=== PATIENT | male | born 1960 | race African-American/Black ===

== ENCOUNTER 2016-08-05 10:47 | Observation (INO) | payer MEDICAID, OTHER ==
--- NOTE | 2016-08-05 11:16 | ER Document Report ---
ED Medical Screen (RME) - General Stated Complaint: RIGHT SIDE GROIN PAIN Time seen by provider: 11:14 Mode of Arrival: Ambulatory Information source: Patient Notes: 56-year-old male sent by Dr. Niño for possible incarcerated right inguinal hernia. Started having burning right groin pain on Friday with small bowel movements. No history of hernia repair I have greeted and performed a rapid initial assessment of this patient. A comprehensive ED assessment, evaluation of the patient, analysis of test results , and completion of the medical decision making process will be conducted by additional ED providers. TRAVEL OUTSIDE OF THE [place] IN LAST 30 DAYS: No - Related Data Allergies/Adverse Reactions: No Known Allergies Allergy (Verified 10/26/13 08:19) Past Medical History - Past Medical History Cardiac Medical History: Reports: Hx Congestive Heart Failure, Hx Coronary Artery Disease, Hx Heart Attack, Hx Hypercholesterolemia, Hx Hypertension Pulmonary Medical History: Reports: Hx COPD, Hx Sleep Apnea Endocrine Medical History: Reports: Hx Diabetes Mellitus Type 2 Renal/ Medical History: Reports: Hx Benign Prostatic Hyperplasia Musculoskeltal Medical History: Reports Hx Arthritis Traumatic Medical History: Reports: Hx Fractures - L ankle Past Surgical History: Reports: Hx Cardiac Surgery - CABGx3 03/2014, Hx Coronary Artery Bypass Graft - Immunizations Hx Diphtheria, Pertussis, Tetanus Vaccination: Yes Physical Exam - Vital signs Vitals: Temp Pulse Resp BP Pulse Ox 98.1 F 89 20 138/88 H 96 08/05/16 10:57 08/05/16 10:57 08/05/16 10:57 08/05/16 10:57 08/05/16 10:57 Course - Vital Signs Vital signs: Temp Pulse Resp BP Pulse Ox 98.1 F 89 20 138/88 H 96 08/05/16 10:57 08/05/16 10:57 08/05/16 10:57 08/05/16 10:57 08/05/16 10:57
[2016-08-05 11:36] LABS: ABSOLUTE BASOPHILS # (AUTO) 0.1 10^3/uL (0.0-0.2); ABSOLUTE EOSINOPHILS # (AUTO) 0.3 10^3/uL (0.0-0.6); ABSOLUTE LYMPHOCYTES (AUTO) 2.3 10^3/uL (0.5-4.7); ABSOLUTE MONOCYTES (AUTO) 0.7 10^3/uL (0.1-1.4); ABSOLUTE NEUT (AUTO) 4.6 10^3/uL (1.7-8.2); BASOPHILS % (AUTO) 1.4 % (0-2); EOSINOPHILS % (AUTO) 3.5 % (0-6); HEMATOCRIT 39.6 % (37.9-51.0); HEMOGLOBIN 13.1 g/dL (13.5-17.0); HGB HCT DIFFERENCE -0.3; LYMPHOCYTES % (AUTO) 28.6 % (13-45); MEAN CORPUSCULAR HEMOGLOBIN 26.7 pg (27.0-33.4); MEAN CORPUSCULAR VOLUME 81 fl (80-97); MONOCYTES % (AUTO) 9.1 % (3-13); RED BLOOD COUNT 4.89 10^6/uL (4.35-5.55); SEGMENTED NEUTROPHILS % (AUTO) 57.4 % (42-78); WHITE BLOOD COUNT 7.9 10^3/uL (4.0-10.5)
[2016-08-05 11:45] LABS: APPEARANCE,URINE CLEAR; BILIRUBIN,URINE NEGATIVE (NEGATIVE); GLUCOSE, URINE NEGATIVE (NEGATIVE); KETONES,URINE NEGATIVE (NEGATIVE); LEUKOCYTE ESTERASE,URINE NEGATIVE (NEGATIVE); NITRITE,URINE NEGATIVE (NEGATIVE); PROTEIN,URINE NEGATIVE (NEGATIVE); URINE SPECIFIC GRAVITY 1.016; UROBILINOGEN,URINE NEGATIVE mg/dL (<2.0)
[2016-08-05 11:53] LABS: ALANINE AMINOTRANSFERASE 30 U/L (21-72); ALBUMIN 4.6 g/dL (3.5-5.0); ALKALINE PHOSPHATASE 71 U/L (38-126); ANION GAP 13 (5-19); ASPARTATE AMINO TRANSFERASE 19 U/L (17-59); BILIRUBIN,TOTAL 0.8 mg/dL (0.2-1.3); BLOOD UREA NITROGEN 24 mg/dL (7-20); CALCIUM 10.1 mg/dL (8.4-10.2); CARBON DIOXIDE 27 mmol/L (22-30); CHLORIDE 104 mmol/L (98-107); CREATININE RESULT 1.43 mg/dL (0.52-1.25); GLUCOSE 255 mg/dL (75-110); POTASSIUM 4.9 mmol/L (3.6-5.0); SODIUM 144.2 mmol/L (137-145)
--- NOTE | 2016-08-05 15:32 | ER Document Report ---
ED GI/ - General Chief Complaint: Groin Pain Stated Complaint: RIGHT SIDE GROIN PAIN Mode of Arrival: Ambulatory Information source: Patient Notes: 56-year-old male who states around 2 days ago he developed some right groin pain and swelling to his right scrotum. He denies any dysuria, nausea, vomiting , fevers, history of abdominal surgeries,. Patient went to see his primary care physician who sent the patient here for evaluation of "possible hernia". Patient states the pain is "painful", constant, without radiation. No real aggravating relieving factors. TRAVEL OUTSIDE OF THE [place] IN LAST 30 DAYS: No - HPI Patient complains to provider of: Groin pain Onset: Other - See above Timing/Duration: Gradual Quality of pain: Other - See above Severity at maximum: Moderate Severity in ED: Moderate Pain Level: 2 Location: Other - See above Sexual history: Active Associated symptoms: Other - See above Exacerbated by: Denies Relieved by: Denies Similar symptoms previously: No Recently seen / treated by doctor: Yes - Related Data Allergies/Adverse Reactions: No Known Allergies Allergy (Verified 10/26/13 08:19) Past Medical History - General Information source: Patient - Social History Smoking Status: Never Smoker Chew tobacco use (# tins/day): No Frequency of alcohol use: Occasional Drug Abuse: None Family History: CAD, CVA, Hypertension Patient has suicidal ideation: No Patient has homicidal ideation: No - Past Medical History Cardiac Medical History: Reports: Hx Congestive Heart Failure, Hx Coronary Artery Disease, Hx Heart Attack, Hx Hypercholesterolemia, Hx Hypertension Pulmonary Medical History: Reports: Hx COPD, Hx Sleep Apnea Endocrine Medical History: Reports: Hx Diabetes Mellitus Type 2 Renal/ Medical History: Reports: Hx Benign Prostatic Hyperplasia. Denies: Hx Peritoneal Dialysis Musculoskeltal Medical History: Reports Hx Arthritis Traumatic Medical History: Reports: Hx Fractures - L ankle Past Surgical History: Reports: Hx Cardiac Surgery - CABGx3 03/2014, Hx Coronary Artery Bypass Graft - Immunizations Hx Diphtheria, Pertussis, Tetanus Vaccination: Yes Review of Systems - Review of Systems Constitutional: denies: Fever Cardiovascular: denies: Chest pain Respiratory: denies: Short of breath Gastrointestinal: denies: Vomiting Genitourinary: denies: Dysuria, Frequency, Flank pain, Hematuria, Urgency, Retention Musculoskeletal: denies: Leg swelling Skin: Other - no hives. denies: Rash Neurological/Psychological: Other - no slurred speech -: Yes All other systems reviewed and negative Physical Exam - Vital signs Vitals: Temp Pulse Resp BP Pulse Ox 98.1 F 89 20 138/88 H 96 08/05/16 10:57 08/05/16 10:57 08/05/16 10:57 08/05/16 10:57 08/05/16 10:57 Notes: Reviewed vital signs and nursing note as charted by RN. CONSTITUTIONAL: Alert and oriented and responds appropriately to questions. Well -appearing; well-nourished HEAD: Normocephalic; atraumatic CARD: Regular rate and rhythm; no murmurs, no clicks, no rubs, no gallops; symmetric distal pulses RESP: Normal chest excursion without splinting or tachypnea; breath sounds clear and equal bilaterally; no wheezes, no rhonchi, no rales ABD/GI: Normal bowel sounds; elevated BMI; no lower abdominal swelling or induration. GI/: Patient has some swelling and fullness to the right testicular/scrotal region. No erythema noted. No perineal lesions, erythema, or induration. No penile lesions present. BACK: The back appears normal and is non-tender to palpation, there is no CVA tenderness EXT: Normal ROM in all joints; non-tender to palpation; no cyanosis, no effusions, no edema SKIN: Normal color for age and race; warm; dry; good turgor; capillary refill < 2 seconds; no acute lesions noted NEURO: Moves all extremities equally; Motor and sensory function intact PSYCH: The patient's mood and manner are appropriate. Grooming and personal hygiene are appropriate. Course - Re-evaluation Re-evalutation: 08/05/16 15:32 Given the history and physical examination we will order an ultrasound of the scrotum. Basic labs have been ordered for possible preop. 08/05/16 17:01 I have called ultrasound as the patient has yet to go to ultrasound after over 2 hours of the order being placed. She states that she has called for the patient but has yet to be transported down to the ultrasound suite. 08/05/16 19:00 Surgery has seen and evaluated the patient regarding the ultrasound result. No change in exam. White count is recorded. The surgeon would like to hold the patient overnight with nothing by mouth at midnight, holding the Plavix, admit the patient to the primary care physician for possible surgery tomorrow. - Vital Signs Vital signs: Temp Pulse Resp BP Pulse Ox 98.1 F 89 20 138/88 H 96 08/05/16 10:57 08/05/16 10:57 08/05/16 10:57 08/05/16 10:57 08/05/16 10:57 - Laboratory Result Diagrams: 08/05/16 11:20 08/05/16 11:20 Laboratory results interpreted by me: 08/05/16 08/05/16 11:20 11:20 Hgb 13.1 L MCH 26.7 L BUN 24 H Creatinine 1.43 H Est GFR (Non-Af Amer) 51 L Glucose 255 H Discharge - Discharge Clinical Impression: Inguinal hernia of right side with obstruction and without gangrene Condition: Fair Disposition: ADMITTED INPATIENT Admitting Provider: [facility] Unit Admitted: Medical Floor
[2016-08-05] MEDS ORDERED: MORPHINE SULFATE 10 MG/ML INJ IV ONE (17:00)
[2016-08-05] MEDS ORDERED: OXYCODONE-ACETAMINOPHEN 5-325 MG TABLET ONE (18:12)
[2016-08-05] MEDS ORDERED: OXYCODONE-ACETAMINOPHEN 5-325 MG TABLET PO ONE (18:45)
--- NOTE | 2016-08-05 20:09 | PDOC CONSULTATION ---
History of Present Illness Admission Date/PCP: 08/05/16 19:18 ERICA ULRICH MD History of Present Illness: DIRK NUNES JR is a 56 year old male is referred to the emergency department by Dr. Bobo this afternoon after being seen in his office for 2-1/2 day history of right testicular swelling. Recent symptoms started insidiously to about days ago. He denies history of trauma, no hernia, constipation or any other precipitating factors. Pain was worse last night. He denies nausea or vomiting or any other constitutional symptoms. In the emergency department he had a ultrasound of his scrotum which showed incarcerated omentum on the right side. Testicles were deemed viable. The patient is being admitted the hospital for observation, with holding of Plavix, and interval surgery. Past Medical History Cardiac Medical History: Reports: Congestive Heart Failure, Coronary Artery Disease, Myocardial Infarction, Hyperlipidema, Hypertension Pulmonary Medical History: Reports: Chronic Obstructive Pulmonary Disease (COPD) , Sleep Apnea Endocrine Medical History: Reports: Diabetes Mellitus Type 2 Musculoskeltal Medical History: Reports: Arthritis Past Surgical History Past Surgical History: Reports: Coronary Artery Bypass Graft, Other - Removal of blister left foot, likely diabetic in nature Social History Smoking Status: Never Smoker Frequency of Alcohol Use: None Hx Recreational Drug Use: No Hx Prescription Drug Abuse: No Family History Family History: CAD, CVA, Hypertension Parental Family History Reviewed: Yes Children Family History Reviewed: Yes Sibling(s) Family History Reviewed.: Yes Medication/Allergy Home Medications: Simvastatin [Zocor 80 mg Tablet] 40 mg PO QHS 10/26/13 Aspirin [Ecotrin 325 mg EC Tablet] 325 mg PO DAILY #0 tabec 10/28/13 Nitroglycerin [Nitrostat 0.4 mg (1/150 Gr) Tabs 25/Bottle] 1 tab SL Q5MP PRN #1 bottle 10/28/13 Clopidogrel Bisulfate [Plavix 75 mg Tablet] 75 mg PO DAILY 09/28/14 Docusate Sodium [Colace 100 mg Capsule] 100 mg PO BID 09/28/14 Famotidine [Pepcid 20 mg Tablet] 20 mg PO BID 09/28/14 Furosemide [Lasix 20 mg Tablet] 20 mg PO QAM 09/28/14 Insulin Glargine,Hum.rec.anlog [Lantus Insulin 100 Unit/1 ml 10 ml] 70 unit SUBCUT QHS 09/28/14 Lisinopril [Prinivil 10 mg Tablet] 10 mg PO DAILY 09/28/14 Tamsulosin HCl [Flomax] 0.4 mg PO DAILY 09/28/14 Allergies/Adverse Reactions: No Known Allergies Allergy (Verified 10/26/13 08:19) Review of Systems Constitutional: PRESENT: as per HPI Eyes: PRESENT: as per HPI Ears: PRESENT: as per HPI Nose, Mouth, and Throat: PRESENT: as per HPI Breasts: PRESENT: as per HPI Cardiovascular: PRESENT: as per HPI Respiratory: PRESENT: as per HPI Gastrointestinal: PRESENT: as per HPI Genitourinary: PRESENT: as per HPI Musculoskeletal: PRESENT: back pain Physical Exam Vital Signs: Temp Pulse Resp BP Pulse Ox 98.1 F 89 20 138/88 H 96 08/05/16 10:57 08/05/16 10:57 08/05/16 10:57 08/05/16 10:57 08/05/16 10:57 General appearance: PRESENT: no acute distress Head exam: PRESENT: normocephalic, other - Wears glasses Eye exam: PRESENT: EOMI Ear exam: PRESENT: normal external ear exam Neck exam: PRESENT: full ROM Respiratory exam: PRESENT: clear to auscultation maureen Cardiovascular exam: PRESENT: RRR Pulses: PRESENT: normal carotid pulses, normal radial pulses GI/Abdominal exam: PRESENT: soft, other - Nontender. Rectal exam: PRESENT: deferred Gentrourinary exam: PRESENT: other - The scrotum is boggy. Tight. The right hemiscrotum is more tender and full on the right than on the left. Reduce the fullness on the right side. Testicle was readily palpated, the right more obscure. There are no masses at the level of the inguinal canals. The cords are not tender. Extremities exam: PRESENT: other - Cervical sandal left foot Results Impressions: Scrotum Ultrasound 08/05/16 15:26 IMPRESSION: 5 cm diameter fat containing right inguinal hernia, appears fixed with little movement on Valsalva maneuver. No bowel involvement. NO EVIDENCE OF TESTICULAR MASS OR TORSION. Microlithiasis. Assessment & Plan - Diagnosis (1) Incarcerated right inguinal hernia Is this a current diagnosis for this admission?: YesPlan: 1. The patient appears to have subacute incarceration of omentum into the right hemiscrotum. He does not have an acutely threatened, and the risk of ischemia is low. My concern is the patient's pain out of proportion to physical findings. 2. Given his history of multiple comorbidities including diabetes mellitus, coronary artery disease, chronic renal insufficiency I believe the patient should be admitted, have his Plavix held, and set up for interval right inguinal herniorrhaphy this hospitalization, possibly within the next 24 hours.. 3. I've discussed the above with Dr. Bobo, wax bleacher, who will admit the patient. We will follow the patient on a bridal sales consultant basis. - Time Time Spent: 30 to 50 Minutes Critical Time spent with patient: 15-24 minutes
--- NOTE | 2016-08-05 20:24 | PDOC H&P ---
History of Present Illness Admission Date/PCP: 08/05/16 19:18 ERICA ULRICH MD Patient complains of: R groin pain History of Present Illness: DIRK NUNES JR is a 56 year old male is referred to the emergency department by Dr. Bobo this afternoon after being seen in his office for 2-1/2 day history of right testicular swelling. Recent symptoms started insidiously to about days ago. He denies history of trauma, no hernia, constipation or any other precipitating factors. Pain was worse last night. He denies nausea or vomiting or any other constitutional symptoms. In the emergency department he had a ultrasound of his scrotum which showed incarcerated omentum on the right side. Testicles were deemed viable. The patient is being admitted the hospital for observation, with holding of Plavix, and interval surgery. Past Medical History Cardiac Medical History: Reports: Congestive Heart Failure, Coronary Artery Disease, Myocardial Infarction, Hyperlipidema, Hypertension Pulmonary Medical History: Reports: Chronic Obstructive Pulmonary Disease (COPD) , Sleep Apnea Endocrine Medical History: Reports: Diabetes Mellitus Type 2 Musculoskeltal Medical History: Reports: Arthritis Past Surgical History Past Surgical History: Reports: Coronary Artery Bypass Graft, Other - Removal of blister left foot, likely diabetic in nature Social History Smoking Status: Never Smoker Frequency of Alcohol Use: None Hx Recreational Drug Use: No Hx Prescription Drug Abuse: No - Advance Directive Resuscitation Status: Full Code Family History Family History: CAD, CVA, Hypertension Parental Family History Reviewed: Yes Children Family History Reviewed: Yes Sibling(s) Family History Reviewed.: Yes Medication/Allergy Home Medications: Simvastatin [Zocor 80 mg Tablet] 40 mg PO QHS 10/26/13 Aspirin [Ecotrin 325 mg EC Tablet] 325 mg PO DAILY #0 tabec 10/28/13 Nitroglycerin [Nitrostat 0.4 mg (1/150 Gr) Tabs 25/Bottle] 1 tab SL Q5MP PRN #1 bottle 10/28/13 Clopidogrel Bisulfate [Plavix 75 mg Tablet] 75 mg PO DAILY 09/28/14 Docusate Sodium [Colace 100 mg Capsule] 100 mg PO BID 09/28/14 Famotidine [Pepcid 20 mg Tablet] 20 mg PO BID 09/28/14 Furosemide [Lasix 20 mg Tablet] 20 mg PO QAM 09/28/14 Insulin Glargine,Hum.rec.anlog [Lantus Insulin 100 Unit/1 ml 10 ml] 70 unit SUBCUT QHS 09/28/14 Lisinopril [Prinivil 10 mg Tablet] 10 mg PO DAILY 09/28/14 Tamsulosin HCl [Flomax] 0.4 mg PO DAILY 09/28/14 Allergies/Adverse Reactions: No Known Allergies Allergy (Verified 10/26/13 08:19) Review of Systems Constitutional: ABSENT: fever(s), headache(s), weight loss Nose, Mouth, and Throat: ABSENT: sore throat Cardiovascular: ABSENT: chest pain, orthropnea Respiratory: ABSENT: cough, dyspnea Gastrointestinal: ABSENT: abdominal pain, constipation, hematochezia, melena, vomiting Genitourinary: ABSENT: difficulty urinating, dysuria, hematuria Physical Exam Vital Signs: Temp Pulse Resp BP Pulse Ox 98.1 F 89 20 138/88 H 96 08/05/16 10:57 08/05/16 10:57 08/05/16 10:57 08/05/16 10:57 08/05/16 10:57 General appearance: PRESENT: mild distress Mouth exam: PRESENT: moist Neck exam: ABSENT: lymphadenopathy, tenderness, thyromegaly, tracheal deviation Respiratory exam: PRESENT: clear to auscultation maureen Cardiovascular exam: ABSENT: diastolic murmur, irregular rhythm, systolic murmur GI/Abdominal exam: PRESENT: distended, hernia - R indirect incarcerated moderately tender, soft, tenderness - mild RLQ. ABSENT: guarding, mass, organolmegaly, rebound, rigid Gentrourinary exam: PRESENT: scrotal swelling. ABSENT: testicular tenderness Extremities exam: ABSENT: pedal edema Neurological exam: PRESENT: oriented to situation Psychiatric exam: PRESENT: appropriate affect Results Laboratory Results: Abnormal - 24 hr 08/05/16 08/05/16 11:20 11:20 Hgb 13.1 L MCH 26.7 L BUN 24 H Creatinine 1.43 H Est GFR (Non-Af Amer) 51 L Glucose 255 H Impressions: Scrotum Ultrasound 08/05/16 15:26 IMPRESSION: 5 cm diameter fat containing right inguinal hernia, appears fixed with little movement on Valsalva maneuver. No bowel involvement. NO EVIDENCE OF TESTICULAR MASS OR TORSION. Microlithiasis. Assessment & Plan - Diagnosis (1) Inguinal hernia of right side with obstruction and without gangrene Is this a current diagnosis for this admission?: YesPlan: hold plavix then surgery - Time Time Spent: 30 to 50 Minutes Medications reviewed and adjusted accordingly: Yes Anticipated discharge: Home Within: within 72 hours
[2016-08-05] MEDS ORDERED: DEXTROSE 50%-WATER 25 GM/50 ML DISP.SYRIN IV PRN ×2 (20:29)
[2016-08-05] MEDS ORDERED: GLUCAGON,HUMAN RECOMB 1 MG INJ IM PRN (20:29)
[2016-08-05] MEDS ORDERED: DEXTROSE 40% GEL 15 GM TUBE PO PRN ×2 (20:29)
[2016-08-05] MEDS ORDERED: INFLUENZA ADLT QUAD (36MOS+) 2016-17 VAC 0.5 ML SYR IM PRN (23:36)
[2016-08-05] MEDS: 1/2 NORMAL SALINE 1,000 ML IV PRN (23:40)
[2016-08-05] MEDS: HYDROMORPHONE HCL INJ/PF 2 MG/ML AMPULE IV PRN (23:55)
[2016-08-05] MEDS: FAMOTIDINE INJ/PF 20 MG/2 ML SDV IV SCH (23:55)
[2016-08-06] MEDS: INSULIN REG, HUMAN 100 UNIT/ML 3 ML VIAL (PYX) SUBCUT PRN ×3 (01:04→18:22)
[2016-08-06 05:43] LABS: ABSOLUTE EOSINOPHILS # (AUTO) 0.3 10^3/uL (0.0-0.6); ABSOLUTE LYMPHOCYTES (AUTO) 2.2 10^3/uL (0.5-4.7); ABSOLUTE MONOCYTES (AUTO) 0.7 10^3/uL (0.1-1.4); ABSOLUTE NEUT (AUTO) 3.7 10^3/uL (1.7-8.2); BASOPHILS % (AUTO) 0.5 % (0-2); EOSINOPHILS % (AUTO) 4.2 % (0-6); HEMATOCRIT 35.8 % (37.9-51.0); HEMOGLOBIN 11.8 g/dL (13.5-17.0); HGB HCT DIFFERENCE -0.4; LYMPHOCYTES % (AUTO) 31.8 % (13-45); MEAN CORPUSCULAR HEMOGLOBIN 26.7 pg (27.0-33.4); MEAN CORPUSCULAR HGB CONC 32.8 g/dL (32.0-36.0); MEAN CORPUSCULAR VOLUME 81 fl (80-97); MONOCYTES % (AUTO) 10.3 % (3-13); RED BLOOD COUNT 4.41 10^6/uL (4.35-5.55); RED CELL DISTRIBUTION WIDTH 14.1 % (11.5-14.0); SEGMENTED NEUTROPHILS % (AUTO) 53.2 % (42-78)
[2016-08-06] MEDS: HYDROMORPHONE HCL INJ/PF 2 MG/ML AMPULE IV PRN (06:05)
[2016-08-06] MEDS: 1/2 NORMAL SALINE 1,000 ML IV PRN ×3 (06:55→22:49)
--- NOTE | 2016-08-06 08:06 | PDOC PROGRESS REPORT ---
Subjective Progress Note for:: 08/06/16 Subjective:: pain less persistant Physical Exam Vital Signs: Temp Pulse Resp BP Pulse Ox 97.8 F 70 18 132/74 H 98 08/06/16 04:23 08/06/16 04:23 08/06/16 04:23 08/06/16 04:23 08/06/16 04:23 Intake & Output 08/05/16 08/06/16 08/07/16 07:59 07:59 07:59 Intake Total 875 Balance 875 Weight 299 lb 13.259 oz General appearance: PRESENT: no acute distress Respiratory exam: PRESENT: clear to auscultation maureen Cardiovascular exam: ABSENT: diastolic murmur, irregular rhythm, systolic murmur GI/Abdominal exam: ABSENT: mass, organolmegaly, tenderness Extremities exam: ABSENT: pedal edema Results Laboratory Results: 08/06/16 04:51 08/06/16 04:51 WBC 7.0 RBC 4.41 Hgb 11.8 L Hct 35.8 L MCV 81 MCH 26.7 L MCHC 32.8 RDW 14.1 H Plt Count 299 Seg Neutrophils % 53.2 Lymphocytes % 31.8 Monocytes % 10.3 Eosinophils % 4.2 Basophils % 0.5 Absolute Neutrophils 3.7 Absolute Lymphocytes 2.2 Absolute Monocytes 0.7 Absolute Eosinophils 0.3 Absolute Basophils 0.0 Impressions: Scrotum Ultrasound 08/05/16 15:26 IMPRESSION: 5 cm diameter fat containing right inguinal hernia, appears fixed with little movement on Valsalva maneuver. No bowel involvement. NO EVIDENCE OF TESTICULAR MASS OR TORSION. Microlithiasis. Assessment & Plan - Diagnosis (1) Inguinal hernia of right side with obstruction and without gangrene Is this a current diagnosis for this admission?: YesPlan: Dr Mueller plans surgery as soon as plavix level lower
[2016-08-06] MEDS: FAMOTIDINE INJ/PF 20 MG/2 ML SDV IV SCH ×2 (09:37→22:48)
--- NOTE | 2016-08-06 10:08 | PROGRESS NOTE E ---
Progress Note NAME: DIRK NUNES : 1960 AGE: 56Y DATE: 08/06/2016 ROOM: 313 SUBJECTIVE: Patient did have some pain in the right groin region overnight but was given IV Dilaudid 1 mg, and this relieved his pain. He currently is not having any discomfort. He denies any nausea and vomiting. He has not had a bowel movement. OBJECTIVE: The right groin was examined. Did not feel any obvious incarcerated hernia at this time. In the right side of the scrotum, there is some swelling present with possible fluid. However, I do not feel any obvious omentum or bowel present in the hernia. Normal testicular size. Abdomen is soft, nontender, obese. DIAGNOSTIC DATA: White blood cell count 7, hemoglobin 11.8, platelets of 299. Glucose of 255. Creatinine 1.43. ASSESSMENT: 1. RIGHT GROIN PAIN WITH INCARCERATED RIGHT INGUINAL HERNIA WITH OMENTUM BEING SEEN ON ULTRASOUND. THERE DOES NOT APPEAR TO BE ANY SMALL BOWEL PRESENT IN THE HERNIA. HIS PAIN IS CONTROLLED WITH MINIMAL PAIN MEDICATION AT THIS TIME. HE DOES NOT HAVE ANY OBVIOUS SIGNS OF OBSTRUCTION SUCH INCREASE IN ABDOMINAL DISTENTION, NAUSEA AND VOMITING. Complication for repairing the hernia is that he is on Plavix with his last dose yesterday. I would recommend being off Plavix for at least 5 days for semi-urgent or elective surgery. I would recommend CT scan of the abdomen and pelvis to rule out any incarceration with small intestine. If none is seen, then I would recommend pain control and doing his surgery electively or semi-electively, being off Plavix for at least 5 days before surgery. I would recommend that he continue to be n.p.o. until he has had the CT scan. 2. CORONARY ARTERY DISEASE, ON PLAVIX. I would recommend if possible being off Plavix at least 5 days before surgery. Possibly needs to be placed on aspirin during this time. Will need to obtain his cardiology records and possible cardiac evaluation prior to surgery. 3. DIABETES WITH GLUCOSE OF 250. Recommend tighter glucose control prior to surgery. 4. HYPERTENSION, ON MEDICATIONS. Blood pressure 132/74 and 130/87 at current time. Will allow Medicine to continue to monitor this. 5. MORBID OBESITY. 6. CHRONIC RENAL INSUFFICIENCY WITH MILDLY ELEVATED CREATININE OF 1.43. PLAN: 1. CT scan of the abdomen and pelvis to rule out any bowel component in the hernia. 2. If no bowel is present, then recommend placing on oral pain medication and allowing patient to eat. If he is doing well then, he may be discharged and his repair of right incarcerated inguinal hernia performed in a semi-elective time, being off Plavix for at least 5 days. 3. Blood sugar control. DICTATING PHYSICIAN: QUINTIN CASILLAS M.D. [id number] PHY#: [id number] [id number] JOB#: [id number] ACCT: [id number] cc: >
[2016-08-06] MEDS ORDERED: HYDROCODONE/ACETAMINOPHEN 5-325 MG TABLET PO PRN ×3 (12:54→18:46)
--- NOTE | 2016-08-06 12:55 | EKG REPORT ---
SEVERITY:- OTHERWISE NORMAL ECG - SINUS RHYTHM BORDERLINE LEFT AXIS DEVIATION : Confirmed by: Renata Salcedo 06-Aug-2016 12:55:27
[2016-08-06] MEDS ORDERED: POLYETHYLENE GLYCOL 3350 POWDER 17 GM/1 PACKET PO ONE (14:00)
[2016-08-06] MEDS ORDERED: DOCUSATE SODIUM 100 MG CAPSULE PO ONE (14:00)
[2016-08-06] MEDS ORDERED: (PENDING PHARMACY ID) (Metformin Hcl [Metformin Hcl Er] 750 MG) PO SCH (18:00)
[2016-08-06] MEDS ORDERED: RISPERIDONE 1 MG TABLET PO SCH (22:00)
[2016-08-07] MEDS: INSULIN REG, HUMAN 100 UNIT/ML 3 ML VIAL (PYX) SUBCUT PRN (00:33)
[2016-08-07 05:59] LABS: ABSOLUTE EOSINOPHILS # (AUTO) 0.3 10^3/uL (0.0-0.6); ABSOLUTE LYMPHOCYTES (AUTO) 2.2 10^3/uL (0.5-4.7); ABSOLUTE MONOCYTES (AUTO) 0.6 10^3/uL (0.1-1.4); ABSOLUTE NEUT (AUTO) 3.2 10^3/uL (1.7-8.2); BASOPHILS % (AUTO) 0.6 % (0-2); EOSINOPHILS % (AUTO) 4.8 % (0-6); HEMATOCRIT 36.3 % (37.9-51.0); HGB HCT DIFFERENCE -0.3; LYMPHOCYTES % (AUTO) 34.8 % (13-45); MEAN CORPUSCULAR HEMOGLOBIN 26.6 pg (27.0-33.4); MEAN CORPUSCULAR HGB CONC 32.9 g/dL (32.0-36.0); MEAN CORPUSCULAR VOLUME 81 fl (80-97); MONOCYTES % (AUTO) 9.9 % (3-13); RED BLOOD COUNT 4.49 10^6/uL (4.35-5.55); RED CELL DISTRIBUTION WIDTH 13.9 % (11.5-14.0); SEGMENTED NEUTROPHILS % (AUTO) 49.9 % (42-78); WHITE BLOOD COUNT 6.5 10^3/uL (4.0-10.5)
[2016-08-07 06:46] VITALS: BP 141/89
--- NOTE | 2016-08-07 07:25 | PDOC DISCHARGE SUMMARY ---
General - Admit/Disc Date/PCP Admission Date/Primary Care Provider: 08/05/16 20:24 ERICA ULRICH MD Discharge Date: 08/07/16 - Discharge Diagnosis (1) Inguinal hernia of right side with obstruction and without gangrene Is this a current diagnosis for this admission?: YesSummary: on ct no bowel in sac. Surgicalists suggested elective repair next week when plavix is gone. Pain minimal last 24h - Additional Information Resuscitation Status: Full Code Discharge Diet: Cardiac, Diabetic Discharge Activity: Activity As Tolerated Home Medications: Simvastatin [Zocor 80 mg Tablet] 40 mg PO QHS 10/26/13 Docusate Sodium [Colace 100 mg Capsule] 100 mg PO BID 09/28/14 Famotidine [Pepcid 20 mg Tablet] 20 mg PO BID 09/28/14 Furosemide [Lasix 20 mg Tablet] 20 mg PO QAM 09/28/14 Insulin Glargine,Hum.rec.anlog [Lantus Insulin 100 Unit/1 ml 10 ml] 40 unit SUBCUT ACLUNCH 09/28/14 Lisinopril [Prinivil 10 mg Tablet] 5 mg PO DAILY 09/28/14 Tamsulosin HCl [Flomax] 0.4 mg PO DAILY 09/28/14 Doxepin HCl 50 mg PO QHS 08/05/16 Gabapentin [Neurontin 300 mg Capsule] 300 mg PO DAILY 08/05/16 Insulin Aspart [Novolog Flexpen] 10 units SQ AC 08/05/16 Metformin HCl [Metformin HCl ER] 750 mg PO BID 08/05/16 Potassium Chloride [K-Tab ER] 10 meq PO DAILY 08/05/16 Risperidone [Risperdal 1 mg Tablet] 1 mg PO QHS 08/05/16 Hydrocodone/Acetaminophen [[place] 5-325 Tablet] 1 each PO BID PRN #10 tablet 01/16 History of Present Illness Patient complains of: R groin pain History of Present Illness: DIRK NUNES JR is a 56 year old male is referred to the emergency department by Dr. Bobo this afternoon after being seen in his office for 2-1/2 day history of right testicular swelling. Recent symptoms started insidiously to about days ago. He denies history of trauma, no hernia, constipation or any other precipitating factors. Pain was worse last night. He denies nausea or vomiting or any other constitutional symptoms. In the emergency department he had a ultrasound of his scrotum which showed incarcerated omentum on the right side. Testicles were deemed viable. The patient is being admitted the hospital for observation, with holding of Plavix, and interval surgery. Hospital Course Hospital Course: see above Physical Exam Vital Signs: Temp Pulse Resp BP Pulse Ox 98.0 F 74 18 141/89 H 99 08/07/16 05:51 08/07/16 05:51 08/07/16 05:51 08/07/16 05:51 08/07/16 05:51 Intake & Output 08/05/16 08/06/16 08/07/16 07:59 07:59 07:59 Intake Total 875 2278 Balance 875 2278 Weight 299 lb 13.259 oz General appearance: PRESENT: no acute distress Respiratory exam: PRESENT: clear to auscultation maureen Cardiovascular exam: ABSENT: diastolic murmur, irregular rhythm, systolic murmur GI/Abdominal exam: ABSENT: tenderness Extremities exam: ABSENT: pedal edema Results Laboratory Results: 08/07/16 05:03 08/07/16 05:03 WBC 6.5 RBC 4.49 Hgb 12.0 L Hct 36.3 L MCV 81 MCH 26.6 L MCHC 32.9 RDW 13.9 Plt Count 316 Seg Neutrophils % 49.9 Lymphocytes % 34.8 Monocytes % 9.9 Eosinophils % 4.8 Basophils % 0.6 Absolute Neutrophils 3.2 Absolute Lymphocytes 2.2 Absolute Monocytes 0.6 Absolute Eosinophils 0.3 Absolute Basophils 0.0 Labs- Last Values WBC 6.5 10^3/uL (4.0-10.5) 08/07/16 05:03 RBC 4.49 10^6/uL (4.35-5.55) 08/07/16 05:03 Hgb 12.0 g/dL (13.5-17.0) L 08/07/16 05:03 Hct 36.3 % (37.9-51.0) L 08/07/16 05:03 MCV 81 fl (80-97) 08/07/16 05:03 MCH 26.6 pg (27.0-33.4) L 08/07/16 05:03 MCHC 32.9 g/dL (32.0-36.0) 08/07/16 05:03 RDW 13.9 % (11.5-14.0) 08/07/16 05:03 Plt Count 316 10^3/uL (150-450) 08/07/16 05:03 Seg Neutrophils % 49.9 % (42-78) 08/07/16 05:03 Lymphocytes % 34.8 % (13-45) 08/07/16 05:03 Monocytes % 9.9 % (3-13) 08/07/16 05:03 Eosinophils % 4.8 % (0-6) 08/07/16 05:03 Basophils % 0.6 % (0-2) 08/07/16 05:03 Absolute Neutrophils 3.2 10^3/uL (1.7-8.2) 08/07/16 05:03 Absolute Lymphocytes 2.2 10^3/uL (0.5-4.7) 08/07/16 05:03 Absolute Monocytes 0.6 10^3/uL (0.1-1.4) 08/07/16 05:03 Absolute Eosinophils 0.3 10^3/uL (0.0-0.6) 08/07/16 05:03 Absolute Basophils 0.0 10^3/uL (0.0-0.2) 08/07/16 05:03 Sodium 144.2 mmol/L (137-145) 08/05/16 11:20 Potassium 4.9 mmol/L (3.6-5.0) 08/05/16 11:20 Chloride 104 mmol/L (98-107) 08/05/16 11:20 Carbon Dioxide 27 mmol/L (22-30) 08/05/16 11:20 Anion Gap 13 (5-19) 08/05/16 11:20 BUN 24 mg/dL (7-20) H 08/05/16 11:20 Creatinine 1.43 mg/dL (0.52-1.25) H 08/05/16 11:20 Est GFR ( Amer) > 60 (>60) 08/05/16 11:20 Est GFR (Non-Af Amer) 51 (>60) L 08/05/16 11:20 Glucose 255 mg/dL (75-110) H 08/05/16 11:20 POC Glucose 176 mg/dL (70-110) H 08/06/16 22:53 Calcium 10.1 mg/dL (8.4-10.2) 08/05/16 11:20 Total Bilirubin 0.8 mg/dL (0.2-1.3) 08/05/16 11:20 Direct Bilirubin 0.0 mg/dL (0.0-0.3) 08/05/16 11:20 AST 19 U/L (17-59) 08/05/16 11:20 ALT 30 U/L (21-72) 08/05/16 11:20 Alkaline Phosphatase 71 U/L (38-126) 08/05/16 11:20 Total Protein 8.0 g/dL (6.3-8.2) 08/05/16 11:20 Albumin 4.6 g/dL (3.5-5.0) 08/05/16 11:20 Urine Color YELLOW 08/05/16 11:20 Urine Appearance CLEAR 08/05/16 11:20 Urine pH 5.0 (5.0-9.0) 08/05/16 11:20 Ur Specific [place] 1.016 08/05/16 11:20 Urine Protein NEGATIVE mg/dL (NEGATIVE) 08/05/16 11:20 Urine Glucose (UA) NEGATIVE mg/dL (NEGATIVE) 08/05/16 11:20 Urine Ketones NEGATIVE mg/dL (NEGATIVE) 08/05/16 11:20 Urine Blood NEGATIVE (NEGATIVE) 08/05/16 11:20 Urine Nitrite NEGATIVE (NEGATIVE) 08/05/16 11:20 Urine Bilirubin NEGATIVE (NEGATIVE) 08/05/16 11:20 Urine Urobilinogen NEGATIVE mg/dL (<2.0) 08/05/16 11:20 Ur Leukocyte Esterase NEGATIVE (NEGATIVE) 08/05/16 11:20 Urine WBC (Auto) 1 /HPF 08/05/16 11:20 Urine RBC (Auto) 0 /HPF 08/05/16 11:20 Urine Mucus (Auto) RARE /LPF 08/05/16 11:20 Urine Ascorbic Acid NEGATIVE (NEGATIVE) 08/05/16 11:20 Impressions: Scrotum Ultrasound 08/05/16 15:26 IMPRESSION: 5 cm diameter fat containing right inguinal hernia, appears fixed with little movement on Valsalva maneuver. No bowel involvement. NO EVIDENCE OF TESTICULAR MASS OR TORSION. Microlithiasis. Abdomen/Pelvis CT 08/06/16 00:00 IMPRESSION: Fat containing right inguinal hernia Plan Discharge Plan: see Dr Boyd tomorrow to arrange surgery.
[2016-08-07] MEDS ORDERED: POLYETHYLENE GLYCOL 3350 POWDER 17 GM/1 PACKET PO SCH (10:00)
[2016-08-07] MEDS ORDERED: TAMSULOSIN HCL 0.4 MG CAP.SR.24H PO SCH (10:00)
[2016-08-07] MEDS ORDERED: DOCUSATE SODIUM 100 MG CAPSULE PO SCH (10:00)
[2016-08-07] MEDS ORDERED: GABAPENTIN 300 MG CAPSULE PO SCH (10:00)
[2016-08-07] MEDS ORDERED: LISINOPRIL 5 MG TABLET PO SCH (10:00)
== END 2016-08-07 07:30 | disposition home or self-care (01) ==
LOC: ER 10:47 → UNDOADMIN 19:18 → EH 19:18 → INTOOBSV 20:24 → EH 20:24 → 3W 22:24
PROVIDERS: ADMIT Family Medicine; ATTEND Family Medicine
PROC: 3E0234Z Introduction of Serum, Toxoid and Vaccine into Muscle, Percutaneous Approach (ICD-10-PCS; principal; 2016-08-05)
DX: K40.30 Unilateral inguinal hernia, with obstruction, without gangrene, not specified as recurrent (principal); I13.0 Hypertensive heart and chronic kidney disease with heart failure and stage 1 through stage 4 chronic kidney disease, or unspecified chronic kidney disease; I50.9 Heart failure, unspecified; N18.9 Chronic kidney disease, unspecified; J44.9 Chronic obstructive pulmonary disease, unspecified; I25.2 Old myocardial infarction; I25.10 Atherosclerotic heart disease of native coronary artery without angina pectoris; E11.9 Type 2 diabetes mellitus without complications; E66.01 Morbid (severe) obesity due to excess calories; Z79.4 Long term (current) use of insulin; Z95.1 Presence of aortocoronary bypass graft; Z79.02 Long term (current) use of antithrombotics/antiplatelets; Z23 Encounter for immunization
CPT/HCPCS: 99285; 36415 ×3; 82962; 85025 ×3; 80053; 81001; 76870; 93976; 74176; 90686; 93005; 93010; 90471; G0378 ×4; J3490; J1170 ×2; J1815 ×2; S0028 ×2

== ENCOUNTER 2016-08-14 14:18 | Observation (INO) | payer MEDICAID, OTHER ==
[2016-08-13 10:56] LABS: HEMATOCRIT 39.6 % (37.9-51.0); HGB HCT DIFFERENCE -0.6; MEAN CORPUSCULAR HEMOGLOBIN 26.7 pg (27.0-33.4); MEAN CORPUSCULAR HGB CONC 32.9 g/dL (32.0-36.0); MEAN CORPUSCULAR VOLUME 81 fl (80-97); RED BLOOD COUNT 4.87 10^6/uL (4.35-5.55); RED CELL DISTRIBUTION WIDTH 13.9 % (11.5-14.0); WHITE BLOOD COUNT 6.8 10^3/uL (4.0-10.5)
[2016-08-13 11:15] LABS: ANION GAP 13 (5-19); BLOOD UREA NITROGEN 17 mg/dL (7-20); CALCIUM 10.1 mg/dL (8.4-10.2); CARBON DIOXIDE 27 mmol/L (22-30); CHLORIDE 105 mmol/L (98-107); CREATININE RESULT 1.31 mg/dL (0.52-1.25); GLUCOSE 169 mg/dL (75-110); POTASSIUM 4.5 mmol/L (3.6-5.0); SODIUM 144.5 mmol/L (137-145)
--- NOTE | 2016-08-13 17:16 | EKG REPORT ---
SEVERITY:- OTHERWISE NORMAL ECG - SINUS RHYTHM BORDERLINE LEFT AXIS DEVIATION : Confirmed by: Yany Horta MD 13-Aug-2016 17:15:11
[~2016-08-14 14:18] MED LIST: ACETAMINOPHEN 325 MG TABLET PO PRN; DEXAMETHASONE SOD PHOSPHATE INJ 4 MG/1 ML VIAL ONE; LACTATED RINGERS 1000 ML IV PRN; LIDOCAINE 0.5% INJ-PF (5 MG/ML) 50 ML SDV SUBCUT PRN; LIDOCAINE 2% INJ-PF (20 MG/ML) 10 ML AMPUL ONE; ONDANSETRON HCL INJ/PF 4 MG/2 ML SDV ONE; SUCCINYLCHOLINE CHLORIDE INJ 200 MG/10 ML VIAL ONE
[2016-08-14] MEDS ORDERED: CEFAZOLIN 1 GM/D5W RTU 1 GM/50 ML RTUPB IV ONE (14:34)
[2016-08-14 15:12] LABS: POTASSIUM 4.2 mmol/L (3.6-5.0)
[2016-08-14] MEDS ORDERED: FENTANYL CITRATE INJ/PF 100 MCG/2 ML AMPUL ONE (17:40)
[2016-08-14] MEDS ORDERED: MIDAZOLAM 2 MG/2 ML INJ ONE (17:41)
[2016-08-14] MEDS ORDERED: PROPOFOL INJ 200 MG/20 ML VIAL IV ONE (17:41)
[2016-08-14] MEDS ORDERED: MORPHINE SULFATE 10 MG/ML INJ ONE (17:41)
[2016-08-14] MEDS ORDERED: BUPIVACAINE INJ/PF LIPOSOME/PF 266 MG/20 ML SDV ONE (17:42)
[2016-08-14] MEDS ORDERED: BUPIVACAINE HCL 0.25 % INJ/PF (2.5 MG/1 ML) 30 ML VIAL ONE (17:42)
[2016-08-14] MEDS ORDERED: FENTANYL CITRATE INJ/PF 100 MCG/2 ML AMPUL IV PRN (18:47)
[2016-08-14] MEDS ORDERED: MORPHINE SULFATE 10 MG/ML INJ IV PRN ×2 (18:47→19:38)
[2016-08-14] MEDS ORDERED: ONDANSETRON HCL INJ/PF 4 MG/2 ML SDV IV PRN (19:38)
--- NOTE | 2016-08-14 19:42 | PDOC DISCHARGE SUMMARY ---
Discharge Summary (SDC) - Discharge Final Diagnosis: Incarcerated right inguinal hernia Date of Surgery: 08/14/16 Discharge Date: 08/14/16 Condition: Good Treatment or Instructions: [facility] [address], [place] [address] Discharge Instructions: Open Abdominal Procedures (Hernia) 1.General Information: a. DO NOT DRIVE a car or operative machinery for 1-2 weeks or as long as taking Narcotic pain medication. b. DO NOT consume alcohol, tranquilizers, sleeping medication, or any non- prescribed medication for 24 hours unless approved by your doctor or as long as taking pain medication. c. DO NOT make important decisions or sign any important papers for the first 24 hours after surgery. d. When discharged home the same day as surgery have a responsible person with you the first night. 2.Activity Restriction: 2 weeks; a. Avoid heavy lifting (> 10-15 lbs), straining abdominal muscles and sports, mowing lawn, vacuum can cleaner and bending over a lot. b. Walking is important to avoid blood clots in the legs and deep breathing can prevent pneumonia. c. If it fine to go for walks, up and down steps, and ride in a car. 3.Treatment: a. You may remove dressing or Band-Aids the day after surgery and shower then daily is fine, but you should not bathe in a tub or go swimming for 2 weeks. b. If you have paper strips (steri strips) on the skin, do not remove them as they will fall off in the coming weeks. Pat them dry after your shower. Sutures beneath the paper strips dissolve. If you have skin sutures or metal shahid they will be removed on your follow up visit. They may also get wet with a shower. c. Do not use oils, powders, or lotion on your incision. 4.Medications: a. You may take narcotic prescription tablets for pain if needed, one or two every 4 hours (Percocet ). b. Stop the narcotic when able since you cannot take it and drive and they cause constipation. You may switch to plain Tylenol, Advil, or Aleve as you transition from the narcotic. Many adults find good pain relief with Advil 600-800 mg three times a day with meal to work well and avoid narcotic use. High dose Advil should only be used for short courses since it can cause indigestion, ulcer bleeding in the stomach and kidney problems. c. You may resume all normal medications unless a change is specified by your doctors. d. a. If going home the same day as surgery start with clear liquids, and if you do well then advance to normal foods low inf fat and protein. Smaller portion size may be alcaraz the first night. b. When discharged after hospital stay you may resume a normal diet. 6.Notify Physician If: a. Pain is not relieved by pain medication b. Persistent nausea and vomiting c. Chills, fever (above 101) d. Persistent bleeding or swelling at the operative site e. Unable to urinate for 6-8 hours f. Increased redness, drainage, or foul smelling discharge from incision 7. Follow Up Care: a. Please call our office to schedule an appointment with your doctor for 2 weeks. In the event of any postoperative problems or questions you may call our office during business hours or the On-Call surgeon through the boat ride operator at [facility]. [facility] [phone] [facility] [phone] (Ask for the surgeon continuous miner operator helper) b. I understand the instructions for my postoperative care as described above and a copy has been given to me. _ Witness Patient/Significant Other Date Prescriptions: Oxycodone HCl/Acetaminophen [Percocet 5-325 mg Tablet] 2 tab PO ASDIR PRN #15 tab PRN Reason: Discharge Diet: As Tolerated Discharge Activity: Activity As Tolerated, No Lifting Over 10 Pounds Home Care Assistance: None Needed Report the Following to Your Physician Immediately: Shortness of Breath, Increase in Pain, Fever over 101 Degrees - Call me when ready to go home
--- NOTE | 2016-08-14 19:52 | Operative Report ---
Operative Report DATE OF SURGERY: 08/14/16 PREOPERATIVE DIAGNOSIS: Large incarcerated right inguinal hernia POSTOPERATIVE DIAGNOSIS: Same, indirect OPERATION: 1. Exploration of right inguinal region. 2. Repair of right inguinal hernia, indirect, with large ultra Pro ethicon prosthetic. 3. Extremely difficult modifier SURGEON: ANKITA MCDANIEL ANESTHESIA: GA TISSUE REMOVED OR ALTERED: Remnants of accessory sac COMPLICATIONS: None ESTIMATED BLOOD LOSS: minimal INTRAOPERATIVE FINDINGS: see below PROCEDURE: The patient was seen in the preoperative holding area with a right inguinal area was marked by Dr. Garcia. He was then taken to the main operating room and general anesthesia was induced. He is placed in the extreme Trendelenburg, right inguinal area and testicles prepped and draped in sterile fashion. Surgical plan and surgical timeout were conducted. The skin was anesthetized with quarter percent Marcaine. A standard right inguinal herniorrhaphy incision was made with a #10 blade. Subcutaneous tissue incision Delores's fascia and associated superficial veins were divided and ligated as encountered. Deeper tissue including the external oblique aponeurosis was anesthetized with 1 % Marcaine. The external oblique aponeurosis was opened, and the external ring freed up. The ilioinguinal nerve was identified and preserved throughout the dissection although it did take somewhat of a terms of blunt trauma We began mobilizing the contents of the inguinal floor. The principal finding was a very large 5-8 cm wide cylindrical tube of tissue which was bluntly mobilized and surrounded with a [place] drain. A combination of blunt and electrocautery dissection we essentially dissected free all the surrounding tissue which to the right hemiscrotum. Coming up with the Lion drain and contents therein included a large incarcerated right inguinal hernia sac seated sac with cremasteric stranded tissues, and the right testicle. We the hernia sacs from the right testicle and associated cord structures and returned them to the right hemiscrotum. We then dissected the striated cremasteric muscles away from the incarcerated sac. Portions of the striated muscle were debrided and sent to pathology. The large sac containing incarcerated omentum, and was photographed for record keeping purposes. This was an indirect sac containing no bowel at this time. In order to keep the contents contained, I reduced the entire sac into the retroperitoneal space bluntly. I did not attempt to free the omentum from the sac because it was pliable but densely adhesed and I felt that the benefits did not outweigh the risks. The sac was able to recess comfortably into the pelvis. From here I was able to use this opening to bluntly dissected all retroperitoneal tissue off of the anterior pelvic wall. We then deployed a large ultraPro Ethicon prosthetic mesh into the right inguinal area. The inner component was splayed out in the retroperitoneal space as best we could manipulate it. It was extremely difficult because of the deep location of the structures in relation to a very thick abdominal wall. Once this was accomplished, we trimmed the external component with a U shaped notch in the 12 o'clock position to become part of the gemma-internal ring. The external component was then sewed to the conjoined tendon, and Anshul's ligament with approximately 8 interrupted 0 PDS sutures. The new internal ring was of appropriate snugness. We then closed the external oblique aponeurosis to Vicryl , Delores's fascia with 2-0 Vicryl, skin with 3-0 Vicryl, and finally Dermabond glue. 20 mL of full strength exparel is injected into the subcutaneous tissue. The right hemiscrotum was inspected carefully and found to contain the right testicle. I did not place any sutures further secure the right testicle. Patient tolerated the procedure well, was extubated and taken to recovery room stable condition Extremely difficult goal modifier is used because of the prolonged operation proximal one half hours, deep struggle result of the thick anterior abdominal wall secondary to morbid obesity.
[2016-08-14] MEDS ORDERED: ACETAMINOPHEN 100 ML IV ONE (20:26)
[2016-08-14] MEDS: OXYCODONE-ACETAMINOPHEN 5-325 MG TABLET PO PRN (21:40)
[2016-08-15] MEDS: OXYCODONE-ACETAMINOPHEN 5-325 MG TABLET PO PRN ×2 (01:33→06:11)
[2016-08-15] MEDS ORDERED: ACETAMINOPHEN 100 ML IV ONE (04:30)
[2016-08-15 04:59] VITALS: BP 124/71
== END 2016-08-15 06:30 | disposition home or self-care (01) ==
LOC: OROUT 14:18 → MERGE 20:49 → 2N 20:49
PROVIDERS: ADMIT Surgery; ATTEND Surgery
PROC: 0YU50JZ Supplement Right Inguinal Region with Synthetic Substitute, Open Approach (ICD-10-PCS; principal; 2016-08-14 16:30)
DX: K40.30 Unilateral inguinal hernia, with obstruction, without gangrene, not specified as recurrent (principal); I10 Essential (primary) hypertension; E11.9 Type 2 diabetes mellitus without complications; Z95.1 Presence of aortocoronary bypass graft; Z79.02 Long term (current) use of antithrombotics/antiplatelets
CPT/HCPCS: 93005; 36415 ×2; 82962; 82947; 84132; 85027; 80048; 88302 ×2; 93010; 94660; 49507; C1781; J2250; J0690; J1100; J3010; J0330; J2405; J2704; J3490; J0131 ×2; C9290; 830; J2270

== ENCOUNTER 2018-12-20 00:35 | Emergency (ER) | payer OTHER, MEDICARE ==
[2018-12-20 00:45] VITALS: BP 140/75
[2018-12-20] MEDS ORDERED: NORMAL SALINE 1000 ML 1,000 ML IV ONE (01:37)
--- NOTE | 2018-12-20 01:45 | ER Document Report ---
ED General - General Chief Complaint: High Blood Sugar Stated Complaint: HIGH BLOOD SUGAR Time Seen by Provider: 12/20/18 01:32 Primary Care Provider: ERICA ULRICH MD [NO LOCAL MD] - Follow up as needed TRAVEL OUTSIDE OF THE [place] IN LAST 30 DAYS: No - HPI Notes: Patient is a 58-year-old male with a history of type 2 diabetes presents emergency department for evaluation of hyperglycemia. He admits he did not take his 7030 until 4:00 this afternoon, while he normally takes in the morning. He denies any diet out of the ordinary. He states he had ham, macaroni and cheese, peas for dinner. He denies any fevers or chills. No nausea or vomiting. No urinary symptoms. He states he has had some intermittent blurred vision. Otherwise he is taking his medications as prescribed, denies any pain. No recent illnesses. - Related Data Allergies/Adverse Reactions: No Known Allergies Allergy (Verified 10/26/13 08:19) Past Medical History - General Information source: Patient - Social History Smoking Status: Former Smoker Frequency of alcohol use: None Family History: CAD, CVA, Hypertension - Past Medical History Cardiac Medical History: Reports: Hx Coronary Artery Disease, Hx Heart Attack - 2014, Hx Hypercholesterolemia, Hx Hypertension Pulmonary Medical History: Reports: Hx Sleep Apnea Denies: Hx Asthma, Hx Bronchitis, Hx COPD, Hx Pneumonia Neurological Medical History: Denies: Hx Cerebrovascular Accident, Hx Seizures Endocrine Medical History: Reports: Hx Diabetes Mellitus Type 2 Renal/ Medical History: Reports: Hx Benign Prostatic Hyperplasia. 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/2014, Hx Coronary Artery Bypass Graft, Other - Removal of blister left foot, likely diabetic in nature - Immunizations Hx Diphtheria, Pertussis, Tetanus Vaccination: Yes Hx Pneumococcal Vaccination: 06/02/16 Review of Systems - Review of Systems EENT: See HPI Cardiovascular: No symptoms reported Respiratory: No symptoms reported Gastrointestinal: No symptoms reported Genitourinary: No symptoms reported Musculoskeletal: No symptoms reported Neurological/Psychological: No symptoms reported Physical Exam - Vital signs Vitals: Temp Pulse Resp BP Pulse Ox 97.8 F 88 18 140/75 H 97 12/20/18 00:37 12/20/18 00:37 12/20/18 00:37 12/20/18 00:37 12/20/18 00:37 - Notes Notes: Vital signs reviewed, please refer to chart. Head is normocephalic, atraumatic. Pupils equal round, reactive to light. Neck is supple without meningismus. Heart is regular rate and rhythm. Lungs are clear to auscultation bilaterally. Abdomen is obese, soft, nontender, normoactive bowel sounds throughout. Extremities without cyanosis, clubbing. Posterior calves are nontender. Periphe ral pulses are equal. Skin is warm and dry. Patient is awake, alert, neurological exam is nonfocal. Course - Re-evaluation Re-evalutation: 12/20/18 03:09 Patient presents to the emergency department for evaluation of elevated blood glucose. He states his blood sugar was too high to measure at home. He states he took his insulin late, but denies any significant changes in diet or medication otherwise. On arrival here he had blood work obtained, was given IV fluids. Blood work revealed a blood sugar in the 150s. He received approximately 550 cc of normal saline, this was discontinued by myself. Patient is stable. He is to continue his home medications as prescribed. Follow-up with primary care, return to the ED with worsening or new concerning symptoms of any sort. - Vital Signs Vital signs: Temp Pulse Resp BP Pulse Ox 97.8 F 88 18 140/75 H 97 12/20/18 00:37 12/20/18 00:37 12/20/18 00:37 12/20/18 00:37 12/20/18 00:37 - Laboratory Result Diagrams: 12/20/18 02:39 12/20/18 02:39 Laboratory results interpreted by me: 12/20/18 12/20/18 02:39 02:39 Hgb 12.3 L Hct 37.0 L MCH 26.8 L BUN 28 H Creatinine 1.53 H Est GFR ( Amer) 57 L Est GFR (Non-Af Amer) 47 L Glucose 146 H ALT 18 L Discharge - Discharge Clinical Impression: Hyperglycemia due to type 2 diabetes mellitus Qualifiers: Diabetes mellitus bed bug exterminator insulin use: with fci use Qualified Code(s): E11.65 - Type 2 diabetes mellitus with hyperglycemia; Z79.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 Take your medications at home as directed. Follow up with your primary care physician this week. If you develop worsening or new concerning symptoms of any sort, return to the ER for further evaluation. Referrals: ERICA ULRICH MD [NO LOCAL MD] - Follow up as needed
[2018-12-20 02:48] LABS: VENOUS BLOOD BASE EXCESS -2.2 mmol/L; VENOUS BLOOD HCO3 24.4 mmol/L (20-32); VENOUS BLOOD PCO2 48.8 mmHg (35-63); VENOUS BLOOD PH 7.32 (7.30-7.42)
[2018-12-20 02:51] LABS: ABSOLUTE BASOPHILS # (AUTO) 0.1 10^3/uL (0.0-0.2); ABSOLUTE EOSINOPHILS # (AUTO) 0.4 10^3/uL (0.0-0.6); ABSOLUTE LYMPHOCYTES (AUTO) 3.4 10^3/uL (0.5-4.7); ABSOLUTE MONOCYTES (AUTO) 0.9 10^3/uL (0.1-1.4); ABSOLUTE NEUT (AUTO) 5.3 10^3/uL (1.7-8.2); EOSINOPHILS % (AUTO) 3.8 % (0-6); HEMOGLOBIN 12.3 g/dL (13.5-17.0); LYMPHOCYTES % (AUTO) 33.3 % (13-45); MEAN CORPUSCULAR HEMOGLOBIN 26.8 pg (27.0-33.4); MEAN CORPUSCULAR HGB CONC 33.1 g/dL (32.0-36.0); MEAN CORPUSCULAR VOLUME 81 fl (80-97); PLATELET COUNT 372 10^3/uL (150-450); RED BLOOD COUNT 4.57 10^6/uL (4.35-5.55); RED CELL DISTRIBUTION WIDTH 13.6 % (11.5-14.0); SEGMENTED NEUTROPHILS % (AUTO) 52.9 % (42-78); TOTAL CELLS COUNTED % (AUTO) 100 %; WHITE BLOOD COUNT 10.1 10^3/uL (4.0-10.5)
[2018-12-20 03:06] LABS: ALANINE AMINOTRANSFERASE 18 U/L (21-72); ALBUMIN 4.1 g/dL (3.5-5.0); ALKALINE PHOSPHATASE 82 U/L (38-126); ANION GAP 10 (5-19); ASPARTATE AMINO TRANSFERASE 18 U/L (17-59); BILIRUBIN,DIRECT 0.2 mg/dL (0.0-0.4); BILIRUBIN,TOTAL 0.5 mg/dL (0.2-1.3); BLOOD UREA NITROGEN 28 mg/dL (7-20); CALCIUM 9.5 mg/dL (8.4-10.2); CARBON DIOXIDE 28 mmol/L (22-30); CHLORIDE 101 mmol/L (98-107); GLUCOSE 146 mg/dL (75-110); POTASSIUM 4.1 mmol/L (3.6-5.0); TOTAL PROTEIN 7.1 g/dL (6.3-8.2)
== END 2018-12-20 03:49 | disposition home or self-care (01) ==
LOC: ER 00:35
DX: E11.65 Type 2 diabetes mellitus with hyperglycemia (principal); T38.3X6A Underdosing of insulin and oral hypoglycemic [antidiabetic] drugs, initial encounter; Z91.14 Patient's other noncompliance with medication regimen; H53.8 Other visual disturbances; Z79.4 Long term (current) use of insulin; I25.10 Atherosclerotic heart disease of native coronary artery without angina pectoris; I10 Essential (primary) hypertension; Z95.1 Presence of aortocoronary bypass graft; Z87.891 Personal history of nicotine dependence
CPT/HCPCS: 36415; 80053; 82803; 85025; 99284

== ENCOUNTER 2019-03-03 07:29 | Day surgery (SDC) | payer OTHER, MEDICARE ==
[~2019-03-03 07:29] MED LIST changes: -ACETAMINOPHEN 325 MG TABLET PO PRN; +CHONDR SU A NA/HYALUR INTRAOC KIT (SURGICARE) ONE; -DEXAMETHASONE SOD PHOSPHATE INJ 4 MG/1 ML VIAL ONE; +EPINEPHRINE INJ/PF 1 MG/1 ML AMPULE ONE; +FENTANYL CITRATE INJ/PF 100 MCG/2 ML AMPUL ONE; +KETOROLAC TROMETHAMINE 0.45% 4 DROP/0.4 ML DROPERETTE OS PRN; -LACTATED RINGERS 1000 ML IV PRN; -LIDOCAINE 0.5% INJ-PF (5 MG/ML) 50 ML SDV SUBCUT PRN; +LIDOCAINE 1% INJ-PF (10 MG/ML) 30 ML SDV ONE; -LIDOCAINE 2% INJ-PF (20 MG/ML) 10 ML AMPUL ONE; +MIDAZOLAM 2 MG/2 ML INJ ONE; -SUCCINYLCHOLINE CHLORIDE INJ 200 MG/10 ML VIAL ONE
[2019-03-03] MEDS: TETRACAINE HCL 0.5% OPH SOLN 4 ML OS PRN ×3 (08:02→08:41)
[2019-03-03] MEDS: BESIFLOXACIN HCL 0.6% OPH SUSP 5 ML BOTTLE OS PRN ×4 (08:03→09:02)
[2019-03-03] MEDS: CYCLOPENTOLATE 0.2%/PHENYLEPHRINE 1% OPH SOLN 2 ML OS PRN ×3 (08:03→08:25)
[2019-03-03] MEDS: TROPICAMIDE 1% OPH SOLN 15 ML OS PRN ×3 (08:03→08:25)
[2019-03-03] MEDS: DORZOLAMIDE HCL 2%/TIMOLOL MALEAT 0.5% OPH SOLN 10 ML OS PRN ×2 (09:02)
[2019-03-03] MEDS: TOBRAMYCIN SULFATE/DEXAMETH OPH OINTMENT 3.5 GM ONE ×2 (09:02)
== END 2019-03-03 09:47 | disposition home or self-care (01) ==
LOC: SC 07:29
PROVIDERS: ATTEND Ophthalmology
DX: H25.12 Age-related nuclear cataract, left eye (principal); E11.9 Type 2 diabetes mellitus without complications; I10 Essential (primary) hypertension; E78.00 Pure hypercholesterolemia, unspecified; K21.9 Gastro-esophageal reflux disease without esophagitis; Z79.899 Other long term (current) drug therapy; Z79.4 Long term (current) use of insulin; Z87.891 Personal history of nicotine dependence; Z79.84 Long term (current) use of oral hypoglycemic drugs
CPT/HCPCS: 66984; 82962; 00142; V2632; J2250; J3490 ×4; J0171; J3010; J2405; 142

== ENCOUNTER 2019-03-17 08:54 | Day surgery (SDC) | payer OTHER, MEDICARE ==
[~2019-03-17 08:54] MED LIST changes: -CHONDR SU A NA/HYALUR INTRAOC KIT (SURGICARE) ONE; -EPINEPHRINE INJ/PF 1 MG/1 ML AMPULE ONE; +KETOROLAC TROMETHAMINE 0.45% 4 DROP/0.4 ML DROPERETTE OD PRN; -KETOROLAC TROMETHAMINE 0.45% 4 DROP/0.4 ML DROPERETTE OS PRN; -LIDOCAINE 1% INJ-PF (10 MG/ML) 30 ML SDV ONE
[2019-03-17] MEDS: BESIFLOXACIN HCL 0.6% OPH SUSP 5 ML BOTTLE OD PRN ×4 (09:23→10:17)
[2019-03-17] MEDS: TROPICAMIDE 1% OPH SOLN 15 ML OD PRN ×3 (09:23→09:43)
[2019-03-17] MEDS: TETRACAINE HCL 0.5% OPH SOLN 4 ML OD PRN ×3 (09:23→09:52)
[2019-03-17] MEDS: CYCLOPENTOLATE 0.2%/PHENYLEPHRINE 1% OPH SOLN 2 ML OD PRN ×3 (09:23→09:44)
[2019-03-17] MEDS: LIDOCAINE 1% INJ-PF (10 MG/ML) 30 ML SDV ONE ×2 (10:07)
[2019-03-17] MEDS: EPINEPHRINE INJ/PF 1 MG/1 ML AMPULE ONE ×2 (10:07)
[2019-03-17] MEDS: CHONDR SU A NA/HYALUR INTRAOC KIT (SURGICARE) ONE ×2 (10:07)
[2019-03-17] MEDS: TOBRAMYCIN SULFATE/DEXAMETH OPH OINTMENT 3.5 GM ONE ×2 (10:17)
[2019-03-17] MEDS: DORZOLAMIDE HCL 2%/TIMOLOL MALEAT 0.5% OPH SOLN 10 ML OD PRN ×2 (10:17)
== END 2019-03-17 10:57 | disposition home or self-care (01) ==
LOC: SC 08:54
PROVIDERS: ATTEND Ophthalmology
DX: H25.11 Age-related nuclear cataract, right eye (principal); Z98.42 Cataract extraction status, left eye; E11.9 Type 2 diabetes mellitus without complications; I10 Essential (primary) hypertension; E78.00 Pure hypercholesterolemia, unspecified; Z79.84 Long term (current) use of oral hypoglycemic drugs; Z79.1 Long term (current) use of non-steroidal anti-inflammatories (NSAID); Z79.899 Other long term (current) drug therapy; Z87.891 Personal history of nicotine dependence
CPT/HCPCS: 66984; 82962; 00142; V2632; J2250; J3490 ×4; J0171; J3010; J2405; 142